=== PATIENT | male | born 1970 | race Caucasian/White ===

== ENCOUNTER 2016-11-23 10:03 | Emergency (ER) | payer OTHER ==
[~2016-11-23] VITALS: Ht 177.8 cm; Wt 104.3 kg
[2016-11-23 10:10] VITALS: BP 149/86; PULSE 56; RESP 14; TEMP 97.2; O2SAT 100
--- NOTE | 2016-11-23 10:10 | NUR ---
Patient to ER bed 08 to gown for evaluation. Side rails up. Report given to Star OLIVA. Addendum: 11/23/16 at 1036 by MAIKOL brought straight back triaged at bedside
--- NOTE | 2016-11-23 10:15 | NUR ---
ER at bedside examining patient.
--- NOTE | 2016-11-23 10:16 | NUR ---
Adithya mac in ED - 11/23/16 at 1021 by JUANY Pt presents to ED c/o
--- NOTE | 2016-11-23 10:17 | NUR ---
Pt presents to ED c/o abd pain s/p eating or drinking in the AM. Pt h/o HTN. Pt has intermittent ABD spasms like pain w/ each episode. Pt denies vomitinig or diarrhea, no CP or SOB. will monitor.
--- NOTE | 2016-11-23 10:45 | NUR ---
Patient transported to radiology via wheechair, accompanied by rad staff.
[2016-11-23 10:48] LABS: BASOPHILS % (AUTO) 0.9 % (0.0-2.0); EOSINOPHILS # (AUTO) 0.1 K/uL (0.0-0.4); EOSINOPHILS % (AUTO) 1.8 % (0.0-4.0); HEMATOCRIT 42.1 % (36-54); HEMOGLOBIN 14.5 g/dL (14.0-18.0); LYMPHOCYTES % (AUTO) 23.1 % (20.5-51.5); MEAN CORPUSCULAR HEMOGLOBIN 30 pg (27-31); MEAN CORPUSCULAR HGB CONC 35 % (32-36); MEAN CORPUSCULAR VOLUME 88 fL (79.0-98.0); MONOCYTES # (AUTO) 0.4 K/uL (0.0-1.0); MONOCYTES % (AUTO) 9.1 % (1.7-9.3); NEUTROPHILS % (AUTO) 65.1 % (40.0-70.0); PLATELET COUNT (AUTO) 200 K/uL (130-430); RED BLOOD CELL COUNT(AUTO) 4.78 MIL/uL (4.2-6.2); RED CELL DISTRIBUTION WIDTH 11.9 % (9.0-15.0); WHITE BLOOD COUNT (AUTO) 4.5 K/uL (4.8-10.8)
[2016-11-23 10:57] LABS: BILIRUBIN,URINE NEGATIVE (NEGATIVE); BLOOD, URINE NEGATIVE (NEGATIVE); CLARITY/URINE CLEAR (CLEAR); COLOR,URINE YELLOW (YELLOW); GLUCOSE,URINE NEGATIVE (NEGATIVE); KETONES,URINE NEGATIVE (NEGATIVE); LEUKOCYTE ESTERASE ,URINE NEGATIVE (NEGATIVE); NITRITE, URINE NEGATIVE (NEGATIVE); PROTEIN URINE NEGATIVE (NEGATIVE); UROBILINOGEN,URINE 0.2 (0.2-1.0)
[2016-11-23 10:59] LABS: CALCIUM 8.8 mg/dL (8.4-11.0); CREATININE 0.81 mg/dL (0.55-1.30)
--- NOTE | 2016-11-23 11:00 | NUR ---
Pt returned from rad dept tolerated well. continuing to monitor.
--- NOTE | 2016-11-23 11:51 | NUR ---
Patient given written and verbal discharge instructions and verbalizes understanding. ER MD discussed with patient the results and treatment provided. Given copies of lab results (consent signed) stated he didn't want to wait for copy of CT. ID arm band removed. Rx of Carafate given. Patient educated on pain management and to follow up with Dr. Carpenter. Pain Scale 0/10. Opportunity for questions provided and answered.
[2016-11-23 11:53] VITALS: BP 132/71; PULSE 65; RESP 18; TEMP 97.2; O2SAT 99
== END 2016-11-23 11:51 | disposition home or self-care (01) ==
LOC: SED 10:03
DX: R10.13 Epigastric pain (principal); I10 Essential (primary) hypertension; Z88.8 Allergy status to other drugs, medicaments and biological substances
CPT/HCPCS: 36415; 80053; 81003; 82150-TC; 83690-TC; 85025; 99285

== ENCOUNTER 2016-12-04 08:45 | Outpatient (CLI) | payer OTHER ==
[2016-12-04 10:03] LABS: CHOLESTEROL 169 mg/dL (<200); HDL CHOLESTEROL 64 mg/dL (>45); LDL CHOLESTEROL 91 mg/dL (<100); THYROID STIMULATING HORMONE 0.67 uIu/mL (0.34-4.82); TRIGLYCERIDES 34 mg/dL (30-150)
[2016-12-04 10:10] LABS: C-REACTIVE PROTEIN QUANT < 0.2 mg/dL (0-0.5)
== END 2016-12-04 18:35 | disposition home or self-care (01) ==
LOC: SUS 08:45
PROVIDERS: ATTEND Internal Medicine
DX: R10.13 Epigastric pain (principal)
CPT/HCPCS: 36415; 76700-TC; 80061; 82306; 82607; 84443-TC; 86140; 86677

== ENCOUNTER 2017-02-12 09:15 | Day surgery (SDC) | payer OTHER ==
[~2017-02-12] VITALS: Ht 177.8 cm; Wt 108.9 kg
[2017-02-12] MEDS: MEPERIDINE HCL/PF 100 MG/ML AMP ONE ×3 (11:06→11:16)
[2017-02-12] MEDS: MIDAZOLAM HCL 5 MG/5 ML VIAL ONE ×4 (11:06→11:13)
[2017-02-12 13:53] VITALS: BP_SYST 135
== END 2017-02-12 12:00 | disposition home or self-care (01) ==
LOC: SDS 09:15
PROVIDERS: ATTEND Internal Medicine Gastroenterology
DX: K29.70 Gastritis, unspecified, without bleeding (principal); K44.9 Diaphragmatic hernia without obstruction or gangrene
CPT/HCPCS: 36415; 43239; 87081; 88305; 88312; 88313; J2175; J2250

== ENCOUNTER 2021-12-16 07:13 | Outpatient (CLI) | payer OTHER ==
[2021-12-16 07:41] LABS: BASOPHILS % (AUTO) 0.7 % (0.0-2.0); EOSINOPHILS # (AUTO) 0.1 K/uL (0.0-0.4); EOSINOPHILS % (AUTO) 2.8 % (0.0-4.0); HEMOGLOBIN 15.4 g/dL (14.0-18.0); LYMPHOCYTES # (AUTO) 1.4 K/uL (1.0-5.5); LYMPHOCYTES % (AUTO) 30.4 % (20.5-51.5); MEAN CORPUSCULAR HEMOGLOBIN 31 pg (27-31); MEAN CORPUSCULAR HGB CONC 34 % (32-36); MEAN CORPUSCULAR VOLUME 90 fL (79.0-98.0); MONOCYTES # (AUTO) 0.5 K/uL (0.0-1.0); MONOCYTES % (AUTO) 10.2 % (1.7-9.3); NEUTROPHILS # (AUTO) 2.6 K/uL (1.8-7.7); NEUTROPHILS % (AUTO) 55.9 % (40.0-70.0); PLATELET COUNT (AUTO) 213 K/uL (130-430); RED CELL DISTRIBUTION WIDTH 13.8 % (9.0-15.0); WHITE BLOOD COUNT (AUTO) 4.7 K/uL (4.8-10.8)
[2021-12-16 07:58] LABS: BILIRUBIN,URINE NEGATIVE (NEGATIVE); BLOOD, URINE NEGATIVE (NEGATIVE); CLARITY/URINE CLEAR (CLEAR); COLOR,URINE YELLOW (YELLOW); GLUCOSE,URINE NEGATIVE (NEGATIVE); KETONES,URINE NEGATIVE (NEGATIVE); LEUKOCYTE ESTERASE ,URINE NEGATIVE (NEGATIVE); NITRITE, URINE NEGATIVE (NEGATIVE); PH,URINE 6.5 (5.0-8.0); PROTEIN URINE NEGATIVE (NEGATIVE); UROBILINOGEN,URINE 0.2 (0.2-1.0)
[2021-12-16 08:11] LABS: ALBUMIN 3.7 g/dL (3.4-4.8); CALCIUM 8.2 mg/dL (8.4-11.0); CREATININE 0.77 mg/dL (0.55-1.30); POTASSIUM 4.4 mmol/L (3.5-5.1); THYROID STIMULATING HORMONE 1.09 uIu/mL (0.36-3.74); TOTAL BILIRUBIN 0.6 mg/dL (0.0-1.0)
[2021-12-17 04:06] LABS: PROSTATE SPECIFIC AG 0.9 ng/mL (0.0-4.0)
== END 2021-12-16 21:09 | disposition home or self-care (01) ==
LOC: SLB 07:13
PROVIDERS: ATTEND Internal Medicine
DX: Z00.01 Encounter for general adult medical examination with abnormal findings (principal); E66.3 Overweight; E56.9 Vitamin deficiency, unspecified
CPT/HCPCS: 36415; 80053; 80061; 81003; 82306; 82607; 83036; 83655; 84153; 84443; 85025

== ENCOUNTER 2023-01-22 13:24 | Outpatient (CLI) | payer OTHER | END 2023-01-22 13:30 | disposition home or self-care (01) | LOC: SCA 13:24 | PROVIDERS: ATTEND Internal Medicine | DX: I51.7 Cardiomegaly (principal); R93.1 Abnormal findings on diagnostic imaging of heart and coronary circulation; R07.9 Chest pain, unspecified | CPT/HCPCS: 93306 ==